=== PATIENT | female | born 1990 | race Caucasian/White ===

== ENCOUNTER 2016-11-21 10:19 | Emergency (ER) | payer OTHER ==
[2016-11-21 10:38] VITALS: BP 108/73
--- NOTE | 2016-11-21 11:30 | UC ---
Throat Pain/Nasal James HPI - HPI Summary HPI Summary: Nasal congestion, PND, and headache starting a week ago. St gradually worsened until 2 days ago, has slightly improved since then. Denies fever or trouble breathing. No hx of ENT surgery or recurrent sinusitis. Here for work note. - History of Current Complaint Chief Complaint: UCRespiratory Stated Complaint: CONGESTION Time Seen by Provider: 11/21/16 11:06 Hx Obtained From: Patient Hx Last Menstrual Period: 11/18/16 ?: No Onset/Duration: Gradual Onset, Lasting Days Severity: Mild Cough: Other: - throat-clearing from PND Associated Signs & Symptoms: Positive: Sinus Discomfort, Nasal Discharge. Negative: Wheezing, Hoarseness, Fever, Vomiting, Rash - Allergies/Home Medications Allergies/Adverse Reactions: Allergies Allergy/AdvReac Type Severity Reaction Status Date / Time Loracarbef [From Lorabid] Allergy Intermediate Rash Unverified 11/21/16 10:39 PMH/Surg Hx/FS Hx/Imm Hx Previously Healthy: Yes - Surgical History Surgical History: None - Family History Known Family History: Positive: Other - high cholesterol - Social History Occupation: Employed Full-time - [employer] Alcohol Use: None Substance Use Type: Marijuana Substance Use Comment - Amount & Last Used: ocassional Smoking Status (MU): Never Smoked Tobacco Type: eCigarettes Review of Systems Constitutional: Negative Skin: Negative Eyes: Negative ENT: Sore Throat, Nasal Discharge Respiratory: Cough Cardiovascular: Negative Gastrointestinal: Negative Genitourinary: Negative Motor: Negative Neurovascular: Negative Musculoskeletal: Negative Neurological: Headache Psychological: Negative All Other Systems Reviewed And Are Negative: Yes Physical Exam Triage Information Reviewed: Yes Appearance: Well-Appearing, No Pain Distress, Well-Nourished Vital Signs: Initial Vital Signs Temp 97.9 F 11/21/16 10:35 Pulse 90 11/21/16 10:35 Resp 16 11/21/16 10:35 BP 108/73 11/21/16 10:35 Pulse Ox 100 11/21/16 10:35 Vital Signs Reviewed: Yes Eye Exam: Normal Eyes: Positive: Conjunctiva Clear ENT: Positive: Hearing grossly normal, Pharynx normal, Nasal congestion, Nasal drainage, TMs normal. Negative: Tonsillar swelling, Tonsillar exudate Dental Exam: Normal Dental: Negative: Percussion Tenderness @ Neck exam: Normal Neck: Positive: Supple, Nontender, No Lymphadenopathy Respiratory Exam: Normal Respiratory: Positive: Chest non-tender, Lungs clear, Normal breath sounds, No respiratory distress, No accessory muscle use Cardiovascular Exam: Normal Cardiovascular: Positive: RRR, No Murmur Musculoskeletal Exam: Normal Neurological Exam: Normal Psychological Exam: Normal Skin Exam: Normal Throat Pain/Nasal Course/Dx - Differential Dx/Diagnosis Provider Diagnoses: sinusitis Discharge - Discharge Plan Condition: Stable Disposition: HOME Patient Education Materials: Rhinosinusitis (ED) Forms: *Work Release Referrals: Carmela Hernandez MD [Primary Care Provider] - If Needed Additional Instructions: As we discussed, your symptoms sound very viral at this point. You should continue to improve over the next week or so. Call or return if you develop increasing fever, shortness of breath, chest pain , bloody sputum, or otherwise worsen. If you have not improved at all after several days, contact your primary care physician or return here.
== END 2016-11-21 11:28 | disposition home or self-care (01) ==
LOC: UCEAST 10:19
DX: J32.9 Chronic sinusitis, unspecified (principal)
CPT/HCPCS: 99211; G0463